=== PATIENT | female | born 1990 | race Caucasian/White ===

== ENCOUNTER 2020-07-26 09:32 | Observation (INO) ==
[2020-07-26] MEDS ORDERED: BETAMETHASONE ACETATE,SOD PHOS 6 MG/ML VIAL IM STA (09:57)
[2020-07-26] MEDS ORDERED: AZITHROMYCIN 250 MG TABLET PO STA (09:58)
[2020-07-26 10:08] VITALS: BP 124/70
[2020-07-26] MEDS ORDERED: MAGNESIUM SULFATE IN WATER 50 ML, MAGNESIUM SULFATE IN WATER 50 ML IV ONE ×2 (10:17)
[2020-07-26] MEDS ORDERED: ceFAZolin SODIUM 1 GM in DEXTROSE 5 % IN WATER 50 ML IV SCH ×2 (10:30)
[2020-07-26] MEDS ORDERED: MAGNESIUM SULFATE IN WATER 1,000 ML IV SCH (10:30)
[2020-07-26 10:44] LABS: Hematocrit 31.3 % (37.0-47.0); Hemoglobin 10.6 gm/dL (12.5-16.0); Mean Cell Volume 96.3 fl (78-100); Mean Corpuscular Hemoglobin 32.6 pg (27-31); Mean Corpuscular Hgb Conc 33.9 g/dl (32-36); Mean Platelet Volume 10.9 fl (8-12.5); Neutrophil # 8.3 K/mm3 (1.3-6.0); Neutrophil % 77.6 % (42-75.0); Platelet Count 194 K/mm3 (150-450); Red Blood Count 3.25 M/mm3 (4.2-5.4); Red Cell Distribution Width 11.6 % (11.5-14.0); White Blood Count 10.7 K/mm3 (4.0-10.5)
--- NOTE | 2020-07-26 10:46 | HP ---
Chief Complaint - Chief Complaint Date of Service: 07/26/20 Time of Service: 10:27 Chief Complaint: rupture of membranes History of Present Illness: 30 year old at 30w 5d by a 7w 2d ultrasound. She initially presented to the emergency department in [place] and was subsequently transferred to [facility]. The patient reported a big gush of fluid at 0900. She reports some cramping but no regular ctx. She denies vaginal bleeding. Fetus is active. Medical History (Last Updated 07/26/20 @ 10:24 by Lety Hernandez MD) Fibromyalgia Hypothyroidism Surgical History: Surgical History (Last Updated 07/26/20 @ 10:25 by Lety Hernandez MD) Hx of cholecystectomy Family History: Family History (Last Updated 07/26/20 @ 10:27 by Lety Hernandez MD) Mother Liver disease Social History: (Last Updated 07/26/20 @ 10:26 by Lety Hernandez MD) Tobacco: Smoking Status: Former smoker tobacco type: cigarettes passive smoking exposure: No second hand exposure: No Alcohol: alcohol intake: former Substance Use: substance use type: does not use Review Of Systems (GEN) - Review of Systems EENTM: Present: No Symptoms Reported Respiratory: Present: No Symptoms Reported Cardiac: Present: No Symptoms Reported Abdominal: Present: No Symptoms Reported Genitourinary: Present: Other - loss of fluid Musculoskeletal: Present: No Symptoms Reported Neurological: Present: No Symptoms Reported Skin: Present: No Symptoms Reported Endocrine: Present: No Symptoms Reported Misc: All systems neg except as marked Immunizations: IMMUNIZATION HX History of Influenza Vaccine More Information Required Hx Pneumococcal Vaccination More Information Required Allergies/Adverse Reactions: Allergies Allergy/AdvReac Type Severity Reaction Status Date / Time morphine Allergy Mild Itching Verified 07/26/20 10:00 penicillin V Allergy Mild Other Verified 07/26/20 10:34 penicillin G AdvReac Verified 07/26/20 10:00 Home Medications: HOME MEDICATIONS Ferrous Sulfate [Iron] 325 mg PO DAILY 11/04/15 [Last Taken 11/04/15 07:00] Levothyroxine Sodium [Synthroid] 150 mcg PO DAILY 11/04/15 [Last Taken 11/04/15 07:00] Vits96/Iron Fum/Folic [ S] 1 tab PO DAILY 11/04/15 [Last Taken 11/04/15 07:00] Exam - Exam Vital Signs: Vital Signs - Last Taken Temp 36.8 C 07/26/20 10:07 Pulse 75 07/26/20 10:07 Resp 20 07/26/20 10:07 BP 124/70 07/26/20 10:07 Pulse Ox 96 07/26/20 10:07 Constitutional: Present: Alert, Oriented x3, Cooperative, No distress ENT Exam: Present: normal ENT inspection, hearing grossly normal Eye Exam: bilateral eye: normal inspection Neck: Present: normal inspection Back Exam: Present: normal inspection, no CVA tenderness Breasts: Present: Exam deferred Respiratory: Present: lungs clear, normal breath sounds, no respiratory distress Cardiovascular/Chest: Present: regular rate, rhythm Abdomen: Present: soft, nontender, nondistended, no rebound tenderness /Rectal: Present: Other - SSE: pooling, nitrazine positive SVE: fingertip Extremity: Present: non-tender, no calf tenderness Skin Exam: Present: normal color, warm/dry, no cyanosis Neurologic: Present: alert, normal mood/affect, oriented x 3 Appearance: Present: appropriate appearance, appropriate insight, neat, no memory impairment Eye contact: Present: cooperative, good eye contact, normal speech Thoughts: Present: normal thought pattern Diagnostic Studies: CBC and type and screen pending Assessment/Plan - Narrative Narrative: 30 year old at 30w 5d 1. PPROM: Antibiotic prophylaxis with zithromax 1 gram PO and Ancef 1 gram q8H scheduled since the patient is allergic to penicillin. A dose of betamethasone was administered. Magnesium for tocolysis and neuroprotection. Vertex presentation confirmed with bedside ultrasound. Transfer to a higher level of care due to gestational age. 2. GBS unknown: GBS collected today, on antibiotic prophylaxis 3. Hypothyroidism: on levothyroxine. Last TSH 6.65 on 07/11/2020 per record. 4. Fibromyalgia: previously on gapapentin. Stopped since confirmation
--- NOTE | 2020-07-26 10:52 | DS ---
(1) premature rupture of membranes (PPROM) with unknown onset of labor Problem: Acute (2) 30 weeks gestation of Problem: Acute Date of Discharge:: 07/26/20 Hospital Course: Patient admitted with PPROM and transferred to [facility] Procedures Performed: none Results and Findings: Lab Pending Results 07/26/20 10:13: WBC 10.7 H, RBC 3.25 L, Hgb 10.6 L, Hct 31.3 L, MCV 96.3, MCH 32.6 H, MCHC 33.9, RDW 11.6, Plt Count 194, MPV 10.9, Immature Gran % (Auto) 1.90 H, Immature Gran # (Auto) 0.20 H, Neutrophils % 77.6 H, Lymphocytes % 12.8 L, Monocytes % 6.4, Eosinophils % 1.0, Basophils % 0.3, Nucleated RBC % 0.0, Neutrophils # 8.3 H, Lymphocytes # 1.36 L, Monocytes # 0.7, Eosinophils # 0.1, Absolute Basophils 0.0 Discharge Location: [facility] Disposition: Short Term Hospital Inpatient Condition: Stable Discharge Activity: Other Discharge Diet: NPO Complete Home Medications List: Complete Home Medication List: Ferrous Sulfate [Iron] 325 mg PO DAILY 11/04/15 Levothyroxine Sodium [Synthroid] 150 mcg PO DAILY 11/04/15 Vits96/Iron Fum/Folic [ S] 1 tab PO DAILY 11/04/15
[2020-07-26 12:04] LABS: Cocaine Ur Negative (NEGATIVE); Urine Barbiturate Negative (NEGATIVE); Urine Benzodiazepines Negative (NEGATIVE); Urine Opiates Negative (NEGATIVE); Urine PCP Negative (NEGATIVE); Urine THC Negative (NEGATIVE)
== END 2020-07-26 11:45 | disposition short-term general hospital (02) ==
LOC: ER 09:32 → OB 09:47 → OBCLINIC 09:47
PROVIDERS: ADMIT Obstetrics & Gynecology; ATTEND Obstetrics & Gynecology
DX: O42.913 Preterm premature rupture of membranes, unspecified as to length of time between rupture and onset of labor, third trimester